=== PATIENT | male | born 1970 | race Caucasian/White ===

== ENCOUNTER 2020-07-14 07:51 | Emergency (ER) | payer OTHER ==
[~2020-07-14] VITALS: Ht 193 cm; Wt 95.4 kg
[2020-07-14 07:51] VITALS: BP 137/78
--- NOTE | 2020-07-14 08:00 | PHYS DOC ---
Past Medical History Past Medical History: Depression Past Surgical History: No Surgical History Alcohol Use: None Drug Use: None General Adult EDM: Chief Complaint: PSYCH EVALUATION HPI: HPI: This is a pleasant 49-year-old male presenting the emergency department today after being referred here by police and EMS. The patient was in a domestic dispute at home. Police department got involved and gave the patient the choice to come to the emergency department for psychiatric evaluation or to go to [facility]. He has a history of depression but only took 1 medication in the past for this he has not been taking his depression medication recently. He currently denies suicidal or homicidal ideation. He has a safe place to go. He denies any complaints and does not desire to be seen. Onset today. Location generalized. Duration constant. No alleviating factors. Review of systems negative for headache chest pain shortness of breath abdominal pain vomiting fevers chills suicidal ideation or homicidal ideation. All other review of systems negative ED course: 49-year-old gentleman presenting here after EMS and paramedics referred him here as an alternative to going to [facility]. Patient has no medical complaints and has a normal physical exam within normal psychiatric examination other than chronic depression. Patient would like to be discharged. The patient has been examined and was not found to have an emergency medical condition. The patient was then discharged home in stable condition to follow up with their primary care physician over the next 1-2 days. They were to return if their symptoms worsened or if they were concerned for any reason. They were also instructed to return to the emergency department if they were unable to get the recommended and appropriate follow-up. [id number] discharge instructions and return precautions were given. Patient's questions were answered to their satisfaction. Patient is comfortable with plan. Heart Score: Risk Factors: Risk Factors: DM, Current or recent (<one month) smoker, HTN, HLP, family history of CAD, obesity. Risk Scores: Score 0 - 3: 2.5% MACE over next 6 weeks - Discharge Home Score 4 - 6: 20.3% MACE over next 6 weeks - Admit for Clinical Observation Score 7 - 10: 72.7% MACE over next 6 weeks - Early Invasive Strategies Physical Exam: PE: Constitutional: Well developed, well nourished, no acute distress, non-toxic appearance. [] HENT: Normocephalic, atraumatic, bilateral external ears normal, oropharynx [address], no oral exudates, nose normal. [] Eyes: PERRLA, EOMI, conjunctiva normal, no discharge. [] Neck: Normal range of motion, no tenderness, supple, no stridor. [] Cardiovascular:Heart rate regular rhythm, no murmur [] Lungs & Thorax: Bilateral breath sounds clear to auscultation [] Abdomen: Bowel sounds normal, soft, no tenderness, no masses, no pulsatile masses. [] Skin: Warm, dry, no erythema, no rash. [] Back: No tenderness, no CVA tenderness. [] Extremities: No tenderness, no cyanosis, no clubbing, ROM intact, no edema. [] Neurologic: Alert and oriented X 3, normal motor function, normal sensory function, no focal deficits noted. [] Psychologic: Psych Examination: General appearance and behavior: well groomed, maintains good eye contact Speech: normal rate and flow, not pressured Affect: congruent with mood Mood: euthymic Perception: no illusions or hallucinations Safety: denies suicidal, homicidal, self-injurious ideas, impulses, or plans Cognition - Level of consciousness: awake - Orientation: oriented to person, place and time - Attention and concentration: nl - Memory (registration, recent and remote): nl - Judgment: nl - Insight: able to self reflect EKG: EKG: [] Radiology/Procedures: Radiology/Procedures: [] Course & Med Decision Making: Course & Med Decision Making Pertinent Labs and Imaging studies reviewed. (See chart for details) [] Dragon Disclaimer: Dragon Disclaimer: This electronic medical record was generated, in whole or in part, using a voice recognition dictation system. Departure Departure Impression: Primary Impression: Encounter for medical screening examination Disposition: 01 DC HOME SELF CARE/HOMELESS Condition: STABLE Patient Instructions: Medical Screening Exam CAIN BHATT MD Jul 14, 2020 08:00
== END 2020-07-14 08:07 | disposition home or self-care (01) ==
LOC: ER 07:51
DX: F32.9 Major depressive disorder, single episode, unspecified (principal)
CPT/HCPCS: 99283